=== PATIENT | male | born 1995 | race Two or more races ===

== ENCOUNTER 2022-07-05 14:47 | Emergency (ER) | payer SELFPAY ==
[~2022-07-05] VITALS: Ht 167.6 cm; Wt 59.9 kg
[2022-07-05] MEDS ORDERED: ACETAMINOPHEN 325 MG TABLET PO ONE (15:00)
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
--- NOTE | 2022-07-05 15:15 | NUR ---
X-RAY TECH AT BEDSIDE
[2022-07-05] MEDS ORDERED: ACETAMINOPHEN 325 MG TABLET ONE (15:30)
[2022-07-05] MEDS ORDERED: IBUP-1955 PO (15:57)
[2022-07-05 16:08] VITALS: BP 106/63
--- NOTE | 2022-07-05 16:08 | NUR ---
D/C INSTRACTION GIVEN TO PT AND [employer] PT CLEAR TO BOOKING
== END 2022-07-05 16:05 ==
LOC: ER 14:49
DX: M25.511 Pain in right shoulder (principal); M25.531 Pain in right wrist; M79.641 Pain in right hand; Y08.89XA Assault by other specified means, initial encounter; Y93.89 Activity, other specified; Y92.89 Other specified places as the place of occurrence of the external cause; Y99.8 Other external cause status
CPT/HCPCS: 73030-TC; 73110; 73130-TC